=== PATIENT | female | born 1945 | race Two or more races ===

== ENCOUNTER → 2017-03-30 | Outpatient (CLI) | payer OTHER ==
[2015-02-14 15:35] VITALS: BP 187/80
[~2017-03-30] MED LIST: AMLO10TA2 PO; ESCITALOPRAM OX10 MG PO; GLIM2TAB2 PO; HYDR25TA9 PO; LOSA100T6 PO; METF-620 PO; METO100T2 PO; OMEP20TA8 PO; SIMV40TA3 PO
--- NOTE | 2017-03-30 15:44 | RAD ---
DATE: 03/30/2017 EXAM: DIGITAL SCREEN BILAT W/CAD HISTORY: Routine screening COMPARISON: Baseline study This study was interpreted with the benefit of Computerized Aided Detection (CAD). The breast parenchyma shows scattered fibroglandular densities. Breast parenchyma level B. FINDINGS: No breast mass is identified. There are scattered benign type calcifications. No suspicious microcalcifications are evident. Benign-appearing lymph node type densities are present in the right axillary region. IMPRESSION: There is no mammographic evidence of malignancy in either breast. BI-RADS CATEGORY: 2 BENIGN FINDING(S) RECOMMENDED FOLLOW-UP: 12M 12 MONTH FOLLOW-UP PQRS compliance statement: Patient information was entered into a reminder system with a target due date for the next mammogram. Mammography is a sensitive method for finding small breast cancers, but it does not detect them all and is not a substitute for careful clinical examination. A negative mammogram does not negate a clinically suspicious finding and should not result in delay in biopsying a clinically suspicious abnormality. "Our facility is accredited by the [employer] Mammography Program."
== END | disposition home or self-care (01) ==
LOC: MAMMO 13:41
PROVIDERS: ATTEND Family Medicine
DX: Z12.31 Encounter for screening mammogram for malignant neoplasm of breast (principal)
CPT/HCPCS: G0202; 77067

== ENCOUNTER → 2018-11-04 | Outpatient (CLI) | payer MEDICARE ==
[2015-02-14 15:35] VITALS: BP 187/80
[~2018-11-04] MED LIST changes: -AMLO10TA2 PO; +AMLO10TA8 PO; +HYDR-2145 PO; -HYDR25TA9 PO; +LOSA100T14 PO; -LOSA100T6 PO; -METF-620 PO; +METF10007 PO; -METO100T2 PO; +METO100T7 PO
--- NOTE | 2018-11-04 15:38 | CARD ---
MR#: [id number] Date of Study: 11/04/2018 Ordering Physician: TUYET PENN, Referring Physician: TUYET PENN, Tech: Ele Dorsey APPROVED REPORT EXAM: Two-dimensional and M-mode echocardiogram with Doppler and color Doppler. Other Information Quality : AverageHR: 62bpm INDICATION Murmur RISK FACTORS Hypertension Diabetes 2D DIMENSIONS RVDd2.8 (2.9-3.5cm)Left Atrium(2D)3.5 (1.6-4.0cm) IVSd1.1 (0.7-1.1cm)Aortic Root(2D)2.8 (2.0-3.7cm) LVDd4.5 (3.9-5.9cm)LVOT Diameter2.0 (1.8-2.4cm) PWd0.9 (0.7-1.1cm)LVDs2.6 (2.5-4.0cm) FS (%) 42.4 %SV67.6 ml Aortic Valve AoV Peak Gustavo.150.9cm/sAoV VTI41.4cm AO Peak GR.9.1mmHgLVOT Peak Gustavo.95.4cm/s LVOT VTI 32.36cmAO Mean GR.5mmHg KISHORE (VMAX)1.07qn8MUO (VTI)2.41cm2 Mitral Valve MV E Pgpogfec30.0cm/sMV DECEL GQNX067nf MV A Erhttafk130.9cm/sMV CQE13oy E/A Ratio0.7MVA (PHT)2.75cm2 TDI E/Lateral E'12.0E/Medial E'11.4 Pulmonary Valve PV Peak Pocfofgk786.2cm/sPV Peak Grad.5mmHg Tricuspid Valve TR P. Nhtsioap729di/sRAP TVPMJVCZ4paVx TR Peak Gr.07mqNwESNA35ppMp Pulmonary Vein S1 Kwuiglhb08.2cm/sD2 Biplimzc20.5cm/s PVa [id number] LEFT VENTRICLE The left ventricle is normal size. There is borderline concentric left ventricular hypertrophy. The l eft ventricular systolic function is normal and the ejection fraction is within normal range. The Eje ction Fraction is 55-60%. There is normal LV segmental wall motion. Transmitral Doppler flow pattern is Grade I-abnormal relaxation pattern. RIGHT VENTRICLE The right ventricle is normal size. There is normal right ventricular wall thickness. The right ventr icular systolic function is normal. ATRIA The left atrium size is normal. The right atrium size is normal. The interatrial septum is intact wit h no evidence for an atrial septal defect or patent foramen ovale as noted on 2-D or Doppler imaging. AORTIC VALVE The aortic valve is normal in structure and function. Doppler and Color Flow revealed no significant aortic regurgitation. There is no significant aortic valvular stenosis. MITRAL VALVE The mitral valve is thickened but opens well. There is no evidence of mitral valve prolapse. There is no mitral valve stenosis. Doppler and Color-flow revealed trace to mild mitral regurgitation. TRICUSPID VALVE The tricuspid valve is normal in structure and function. Doppler and Color Flow revealed trace tricus pid regurgitation with an estimated PAP of 31 mmHg. There is no tricuspid valve stenosis. PULMONIC VALVE The pulmonic valve is not well visualized. Doppler and Color Flow revealed no pulmonic valvular regur gitation. GREAT VESSELS The aortic root is normal in size. The IVC is normal in size and collapses >50% with inspiration. PERICARDIAL EFFUSION There is no evidence of significant pericardial effusion. Critical Notification Critical Value: No <Conclusion> The left ventricle is normal size. The left ventricular systolic function is normal and the ejection fraction is within normal range. The Ejection Fraction is 55-60%. There is borderline concentric left ventricular hypertrophy. There is no significant aortic valvular stenosis. Doppler and Color Flow revealed no significant aortic regurgitation. Doppler and Color-flow revealed trace to mild mitral regurgitation. Doppler and Color Flow revealed trace tricuspid regurgitation with an estimated PAP of 31 mmHg. Signed by : Charlie Barlow MD Electronically Approved : 11/04/2018 15:38:10
--- NOTE | 2018-11-04 16:36 | RAD ---
EXAM: Carotid Doppler sonogram. HISTORY: Left carotid bruit, diabetes, hypertension. TECHNIQUE: Mcarthur scale and color Doppler sonographic evaluation of the neck with spectral waveform analysis was performed and static images are submitted for review. FINDINGS: RIGHT: The peak systolic velocity within the common carotid artery is 74 cm/sec. The peak systolic velocity within the internal carotid artery is 199 cm/sec and the end diastolic velocity within the internal carotid artery is 41 cm/sec. The ICA/CCA ratio is 2.56. Grayscale images demonstrate calcified plaquing at the carotid bulb extends to the origins of the internal and external carotids. LEFT: The peak systolic velocity within the common carotid artery is 101 cm/sec. The peak systolic velocity within the internal carotid artery is 94 cm/sec and the end diastolic velocity within the internal carotid artery is 20 cm/sec. The ICA/CCA ratio is 0.92. Grayscale images demonstrate calcified plaquing involves the origin of the external carotid artery with elevated peak systolic velocity of 213 cm/s. There is bidirectional flow within the right vertebral artery. There is antegrade flow in the left vertebral artery. IMPRESSION: 1. 50-69% stenosis within the right proximal and mid internal carotid artery. 2. Bidirectional flow within the right vertebral artery suggests significant stenosis within the right brachiocephalic or right subclavian arteries. CTA of the neck to include the aortic arch could further evaluate. 3. Stenosis at the origins of both external carotid arteries. PQRS Compliance Statement - Stenosis calculations for CT, MR and conventional angiography are based upon measurement of the distal ICA diameter in accordance with the NASCET methodology. Stenosis calculations for carotid ultrasound studies are derived from validated velocity criteria which are known to correlate with the NASCET methodology. Electronically signed by: Maddison Slater MD (11/04/2018 4:33 PM) [facility]
== END | disposition home or self-care (01) ==
LOC: ECHO 13:58
PROVIDERS: ATTEND Family Medicine
DX: I34.0 Nonrheumatic mitral (valve) insufficiency (principal); I65.23 Occlusion and stenosis of bilateral carotid arteries; I10 Essential (primary) hypertension; E11.9 Type 2 diabetes mellitus without complications
CPT/HCPCS: 93306; 93880

== ENCOUNTER → 2021-03-15 | Outpatient (CLI) | payer MEDICARE ==
[2015-02-14 15:35] VITALS: BP 187/80
[~2021-03-15] MED LIST changes: +AMLO-187 PO; -AMLO10TA8 PO; -GLIM2TAB2 PO; +GLIM2TAB7 PO; +SIMV40TA18 PO; -SIMV40TA3 PO
--- NOTE | 2021-03-15 13:55 | RAD ---
EXAM: CAROTID DOPPLER SONOGRAM. HISTORY: Carotid bruit. TECHNIQUE: Mcarthur scale and color Doppler sonographic evaluation of the neck with spectral waveform carie lysis was performed and static images are submitted for review. FINDINGS: RIGHT: The peak systolic velocity within the common carotid artery is 113 cm/sec. The peak systolic v elocity within the internal carotid artery is 405 cm/sec and the end diastolic velocity within the in ternal carotid artery is 67 cm/sec. The ICA/CCA ratio is 3.8. Grayscale images demonstrate no graysca le stenosis. LEFT: The peak systolic velocity within the common carotid artery is 113 cm/sec. The peak systolic ve locity within the internal carotid artery is 130 cm/sec and the end diastolic velocity within the int ernal carotid artery is 22 cm/sec. The ICA/CCA ratio is 1.0. Grayscale images demonstrate no grayscal e stenosis. There is bidirectional flow within the right vertebral artery. There is antegrade flow on the left. IMPRESSION: 1. >70% stenosis within the right and mid proximal internal carotid artery. There is lesser stenosis more distally on the right. 2. 50-69% stenosis within the left proximal internal carotid artery. 3. Bidirectional flow within the right vertebral artery suggests hemodynamically significant proximal right subclavian stenosis. PQRS Compliance Statement - Stenosis calculations for CT, MR and conventional angiography are based u roni measurement of the distal ICA diameter in accordance with the NASCET methodology. Stenosis calcu lations for carotid ultrasound studies are derived from validated velocity criteria which are known t o correlate with the NASCET methodology. Electronically signed by: Maddison Slater MD (03/15/2021 1:52 PM) [id number]
== END ==
LOC: US 11:24
PROVIDERS: ATTEND Family Medicine
DX: I65.23 Occlusion and stenosis of bilateral carotid arteries (principal); R09.89 Other specified symptoms and signs involving the circulatory and respiratory systems
CPT/HCPCS: 93880